=== PATIENT | male | born 1955 | race Asian ===

== ENCOUNTER 2024-08-29 14:26 | Outpatient (REF) | payer MEDICAID, SELFPAY ==
[2024-08-29 15:47] LABS: MANUAL DIFF FLAG NO
[2024-08-29 16:49] LABS: Basophils Percent Auto 0.6 % (0-2); Eosinophils Absolute Auto 0.1 X10*3/uL (0.0-0.4); Eosinophils Percent Auto 1.5 % (0-4); Hematocrit 42.7 % (42.0-52.0); Hemoglobin 14.6 g/dl (14.0-18.0); Imm Gran Abs Auto 0.01 X10*3/uL (0.00-0.03); Imm Gran Pct Auto 0.1 % (0.0-0.4); Lymphocytes Absolute Auto 1.8 X10*3/uL (1.2-4.9); Lymphocytes Percent Auto 25.9 % (20-40); Mean Corpuscular HGB Conc 34.2 g/dl (31.0-36.0); Mean Corpuscular Hemoglobin 32.7 pg (27.0-33.0); Mean Corpuscular Volume 95.5 fL (80.0-98.0); Mean Platelet Volume 8.9 fL (9.4-12.4); Monocytes Absolute Auto 0.5 X10*3/uL (0.1-1.2); Monocytes Percent Auto 6.6 % (2-11); Neutrophils Absolute Auto 4.5 x10*3/uL (2.0-8.3); Neutrophils Percent Auto 65.3 % (45-73); Platelet Count 204 X10*3/uL (160-400); Red Blood Count 4.47 X10*6/uL (4.60-5.80); Red Cell Distribution Width 11.6 % (11.0-16.0); White Blood Count 6.9 X10*3/uL (4.8-10.8)
[2024-08-29 17:17] LABS: Alanine Aminotransferase 30 U/L (0-40); Albumin Level 4.1 g/dL (3.5-5.0); Alkaline Phosphatase 102 U/L (39-117); Anion Gap 8 (12-20); Aspartate Amino Transferase 32 U/L (5-37); Bilirubin Total 0.4 mg/dL (0.0-1.0); Blood Urea Nitrogen 12 mg/dL (9-16); Calcium 9.1 mg/dL (8.4-10.2); Carbon Dioxide 29 mmol/L (22-29); Chloride 108 mmol/L (96-108); Estimated Glomerular Filt Rate > 60; Glucose Random 118 mg/dL (60-115); Sodium 141 mmol/L (135-145)
[2024-08-30 08:14] LABS: HBc Num1 8.08 S/CO (0.00-0.79); Hepatitis A Antibody IgM 0.19 Index (0-0.79); ~HepC Num1 0.09 S/CO (0.00-0.79); ~Hepatitis A Antibody IgM Nonreactive (Nonreactive); ~Hepatitis B Surface Antibody NONREACTIVE (Nonreactive); ~Hepatitis C Antibody Nonreactive (Nonreactive)
[2024-08-30 09:56] LABS: HBc Num2 8.13 S/CO; HBc Num3 8.16 S/CO; HBsAGNum2 Reactive; HBsAGNum3 Reactive; Hepatitis B Core Antibody Reactive (Nonreactive); Hepatitis B Surface Antigen Retest CNFM (Negative)
[2024-08-31 23:09] LABS: Hepatitis BE Antibody REACTIVE (NON-REACTIVE)
[2024-09-01 00:52] LABS: Hepatitis B Viral DNA Qn - cp 2.66 Log IU/mL (NOT DETECTED); Hepatitis B Viral DNA Qn-IU/mL 455 IU/mL (NOT DETECTED)
[2024-09-01 15:44] LABS: Hepatitis B Core Antibody IgM NON-REACTIVE (NON-REACTIVE)
[2024-09-03 19:13] LABS: Hepatitis Delta Antibody NEGATIVE
[2024-09-04 22:58] LABS: Hepatitis BE Antigen NON-REACTIVE (NON-REACTIVE)
[2024-09-06 17:47] LABS: FIB-ALT 20 U/L (9-46); FIB-Alpha-2-Macroglobulin 207 mg/dL (106-279); FIB-Apolipoprotein A1 119 mg/dL (94-176); FIB-GGT 16 U/L (3-70); FIB-Haptoglobin 23 mg/dL (43-212); FIB-Total Bilirubin 0.3 mg/dL (0.2-1.2); Liver Fibrosis Stage F2; Nec Inflam Act Grade A0; Nec Inflam Act Score 0.11; Reference ID 5262611
== END 2024-08-29 14:27 | disposition home or self-care (01) ==
LOC: HO.LAB 14:26
PROVIDERS: Visit Provider Internal Medicine Gastroenterology
DX: B18.1 Chronic viral hepatitis B without delta-agent (principal); K75.81 Nonalcoholic steatohepatitis (NASH)
CPT/HCPCS: 36415; 80053; 81596; 85025; 86692; 86704; 86705; 86706; 86707; 86709; 86803; 87340; 87350; 87517; 99202

== ENCOUNTER 2024-08-29 14:26 | Outpatient (AMB) | payer MEDICAID, SELFPAY ==
--- NOTE | 2024-08-29 14:30 | MHC.OFFVIS ---
Vital Signs 08/29/24 14:44 Height 5 ft 2 in Weight 151 lb BMI 27.6 BP 152/83 H Blood Pressure Location Lt brachial Position Sitting Pulse 74 Intake Visit Reasons: Hep B new patient Intake Note: New consult for Hep B. Patient denies any GI issues for today visit. Son is concern about his dad Hep B dx. Newspaper Clipper Required: No Accompanied by: Son Allergies No Known Allergies Allergy (Verified 08/29/24 14:28) HPI HPI Hep B new patient: Details: HPI 69 yr old mandarin speaking male here for assessment He has hx of chronic Hep B, treated in [place] with tenofivir He has had it since 1992 He has no abdominal pain appetite is good weight is normal he has noted episodic blood in stool ROS: Constitutional : No Weight loss, No Fever, No Chills ENT/Mouth : No sore throat, No Rhinorrhea Eyes: No Swelling, No Redness Cardiovascular : No Chest Pain, No SOB, No Edema Respiratory : No Cough, No Sputum, No Wheezing Gastrointestinal : see HPI Genitourinary : NO Dysuria, No Urinary Frequency, No Hematuria, No Urgency Musculoskeletal : + joint pain, No Myalgias, No Joint Swelling Skin : No Skin Lesions, No rash Neuro : No Weakness, No Numbness, No Dizziness, No Headache Psych : No Anxiety/Panic, No Depression Heme/Lymph: No Bruising, No Lymphadenopathy Endocrine : No Polyuria, No Polydipsia All other systems reviewed and are negative. Medical History Hx of H pylori HTN HLP Surgical History leg fracture and surgery Family History No FH of colon cancer No Fh of liver cancer Social History ex smoker no alcohol EXAM: GENERAL: The patient is well developed and nontoxic. VITAL SIGNS:see workflow HEENT: Nonicteric sclerae, PERRLA, EOMI. Oropharynx clear. Moist mucous membranes. Conjunctivae appear well perfused. No thyroid mass. CHEST: Chest wall is nontender. HEART: Regular rate and rhythm without murmurs. LUNGS: Clear to auscultation bilaterally. ABDOMEN: Soft, positive bowel sounds, nontender, no organomegaly.no flank tenderness SKIN: No rash, no excessive bruising, petechiae, or purpura. NEUROLOGIC: Cranial nerves II-XII intact without motor/sensory deficit. Psych: normal affect A/P: 1/ Chronic Hep B 2/ Rectal bleeding PLAN: 1/ Get baseline labs--send tenofovir once get results 2/ colonoscopy with suprep [facility] Surgical History (Updated 08/29/24 @ 14:46 by Ching Albrecht) History of surgery on lower extremity Social History (Updated 08/29/24 @ 14:48 by Ching Albrecht) Household Members: Family Unable to assess alcohol history related to: Unknown Patient Tobacco Use Status: Former Tobacco user Tobacco use type: Cigarette Smoked in Last 30 Days: No Physical Exam Vital Signs: Last Vital Signs Pulse 74 08/29/24 14:44 BP 152/83 H 08/29/24 14:44 BMI result Body Mass Index 27.6 Assessment & Plan Assessment & Plan (1) Chronic hepatitis B: Code(s): B18.1 - Chronic viral hepatitis B without delta-agent Category: Medical Plan: as above Orders: Orders Complete Blood Count Auto Diff Today B18.1 - Chronic viral hepatitis B without delta-agent Hepatitis A,B,C Profile Today B18.1 - Chronic viral hepatitis B without delta-agent Hepatitis B Viral DNA Qn Today B18.1 - Chronic viral hepatitis B without delta-agent Hepatitis BE Antibody Today B18.1 - Chronic viral hepatitis B without delta-agent Hepatitis BE Antigen Today B18.1 - Chronic viral hepatitis B without delta-agent US abdomen torres w elastography Today B18.1 - Chronic viral hepatitis B without delta-agent, K74.60 - Unspecified cirrhosis of liver, K75.81 - Nonalcoholic steatohepatitis (SPARKS) Hepatitis Delta Antibody Today B18.1 - Chronic viral hepatitis B without delta-agent Comprehensive Met. Panel Today B18.1 - Chronic viral hepatitis B without delta-agent, K75.81 - Nonalcoholic steatohepatitis (SPARKS) Liver Fibrosis Pnl Today B18.1 - Chronic viral hepatitis B without delta-agent Medications: New sodium,potassium,mag sulfates 17.5-3.13-1.6 gram (Suprep Bowel Prep Kit) DILUTE; drink 1/2 at 6-8 pm and half at 11 PM- 1AM 354 mL 0RF Coding Level of Care Code New Pt Level 4 (17606) Diagnoses Chronic hepatitis B B18.1
[2024-08-29 14:44] VITALS: BP 152/83; PULSE 74; BMI 27.6
== END 2024-08-31 09:31 | disposition home or self-care (01) ==
PROVIDERS: Visit Provider Internal Medicine Gastroenterology
DX: B18.1 Chronic viral hepatitis B without delta-agent (principal)
CPT/HCPCS: 99204

== ENCOUNTER 2024-09-05 09:03 | Day surgery (SDC) | payer MEDICAID, SELFPAY ==
--- OUTSIDE RECORDS SUMMARY | 2024-08-30 07:49 | XMS_ITS ---
Author Organization Q [facility] Address [address] [place], [place] [id number] Care Team Providers Care Computer Operations Specialist Name Role Phone Yasmin Santana Vivianelogan Primary Care Provider REASON FOR VISIT Telehealth visit 07/02/2024 Social History Sex Assigned At : Social History Observation Description Sex Assigned At Male Encounters Encounter Location Date Provider Diagnosis W [address] [id number] 07/02/2024 Yasmin Santana Plan Of Treatment Next Appt Details Provider Name:Yasmin Santana, 0 10/03/2024 01:45:00 PM, [address] [place] [address], [phone], Provider Name:Yasmin Martinez Max, 0 01/24/2025 11:45:00 AM, [address] [place] [address], [id number], Progress Notes * MELISSA JUSTICEDOB:1955 (69 y o M)Acc No.[id number]:07/02/2024 Patient:?MELISSA JUSTICE :1955???Age:69 Y???Sex:Male Address:[address], [place], [address] * * Date:?
--- OUTSIDE RECORDS SUMMARY | 2024-08-30 07:49 | XMS_ITS ---
Author Organization Q [facility] Address [address] [place], [place] [address] Care Team Providers Care Peoplesoft Hcm Consultant Name Role Phone Max Yasmin Martinez Primary Care Provider REASON FOR VISIT cancel no answer Medications Medication SIG (Take, Route, Frequency, Duration) Notes Start Date End Date Status Vitamin D3 25 mcg 1 cap(s) orally once a day for 30 day(s) Active Atorvastatin Calcium 10 mg 1 tab(s) orally once a day 03/03/2023 Active Vemlidy 25 mg 1 tab(s) orally once a day Not-Taking benazepril 10 mg 1 tab(s) orally once a day and add another tab if BP more than 140/90 Active Social History Sex Assigned At : Social History Observation Description Sex Assigned At Male Encounters Encounter Location Date Provider Diagnosis W [address] [id number] 07/02/2024 Yasmin Santana Plan Of Treatment Next Appt Details Provider Name:Yasmin Santana, 0 10/03/2024 01:45:00 PM, [address] [place] [address], [phone], Provider Name:Yasmin Santana, 0 01/24/2025 11:45:00 AM, [address] [place] [address], [id number], Progress Notes * MELISSA JUSTICEDOB:1955 (69 y o M)Acc No.[id number]:07/02/2024 Telehealth Patient:?MELISSA JUSTICE ??External /[id number]* Provider:?Stephanie Santana MD :1955???Age:69 Y???Sex:Male Phill e:07/02/2024 ?CHN#:[id number] Address:[address] [place], [place] [address] Patient's Default Facility:[facility] Subjective: * Chief Complaints: * ???1. Cancel no answer. * Medical History:? * Medications:?Taking Vitamin D3 25 mcg capsule 1 cap(s) orally once a day , Taking Atorvastatin Calcium 10 mg tablet 1 tab(s) orally once a day , Taking benazepril 10 mg tablet 1 tab(s) orally once a day and add another tab if BP more than 140/90 , Not-Taking Vemlidy 25 mg tablet 1 tab(s) orally once a day Objective: * Vitals:? * Physical Examination:? Assessment: Plan: * Treatment: * Billing Information: * Visit Code:? * Procedure Codes:? * Electronic signature of Yasmin Santana MD on 08/30/2024 at 07:49 AM EST Sign off status: Pending * Provider:?Stephanie Santana MD Date:?07/02/20 24 Generated for Catracho curiel/Kavitha/Alanitting on:?08/30/2024 07:49 AM EST
--- OUTSIDE RECORDS SUMMARY | 2024-08-30 07:50 | XMS_ITS ---
Author Organization [facility] Address [address] [place], [place] [address] Care Team Providers Care Assistant Designer Name Role Phone Yasmin Santana Primary Care Provider Social History Sex Assigned At : Social History Observation Description Sex Assigned At Male Encounters Encounter Location Date Provider Diagnosis [address] [id number] 06/30/2024 Yasmin Santana Plan Of Treatment Next Appt Details Provider Name:Yasmin Santana, 0 10/03/2024 01:45:00 PM, [address] [place] [address], [phone], Provider Name:Yasmin Santana, 0 01/24/2025 11:45:00 AM, [address] [place] [address], [phone], Progress Notes * MELISSA JUSTICEDOB:1955 (69 y o M)Acc No.[id number]:06/30/2024 Telehealth Patient:?MELISSA JUSTICE ??External /[id number]* Provider:?Stephanie Santana MD :1955???Age:69 Y???Sex:Male Phill e:06/30/2024 ?CHN#:[id number] Address:[address], [facility] Patient's Default Facility:[facility] Subjective: * Chief Complaints: * ??? * Medical History:? Objective: * Vitals:? * Physical Examination:? Assessment: Plan: * Treatment: * Billing Information: * Visit Code:? * Procedure Codes:? * Electronic signature of Yasmin Santana MD on 08/30/2024 at 07:49 AM EST Sign off status: Pending * Provider:?Stephanie Santana MD Date:?06/30/20 24 Generated for Catracho curiel/Kavitha/Jose Manuelsmteodoro on:?08/30/2024 07:49 AM EST
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
--- OUTSIDE RECORDS SUMMARY | 2024-09-05 09:09 | XMS_ITS ---
Author Organization Q [facility] Address [address] [place], [place] [address] Care Team Providers Care Loan Review Analyst Name Role Phone Yasmin Santana Primary Care Provider [phone] REASON FOR VISIT New Refill Request Social History Sex Assigned At : Social History Observation Description Sex Assigned At Male Encounters Encounter Location Date Provider Diagnosis W [address] [id number] 09/02/2024 Yasmin Santana Plan Of Treatment Next Appt Details Provider Name:Yasmin Santana, 0 10/03/2024 01:45:00 PM, [address] [place] [address], [phone], Provider Name:Yasmin Martinez Max, 0 01/24/2025 11:45:00 AM, [address] [place] [address], [phone], Progress Notes * MELISSA JUSTICEDOB:1955 (69 y o M)Acc No.[id number]:09/02/2024 Patient:?MELISSA JUSTICE :1955???Age:69 Y???Sex:Male Address:[address], [place], [address] * * Date:?
--- OUTSIDE RECORDS SUMMARY | 2024-09-05 09:09 | XMS_ITS ---
Author Organization Q [facility] Address [address] [place], [place] [address] Care Team Providers Care Computational Linguist Name Role Phone Max Yasmin Martinez Primary Care Provider [phone] REASON FOR VISIT cancel no answer Medications [...] Encounters Encounter Location Date Provider Diagnosis W [address] [id number] 07/02/2024 Yasmin Santana Plan Of Treatment Next Appt Details Provider Name:Yasmin Santana, 0 10/03/2024 01:45:00 PM, [address] [place] [address], [phone], Provider Name:Yasmin Santana, 0 01/24/2025 11:45:00 AM, [address] [place] [address], [phone], Progress Notes * MELISSA JUSTICEDOB:1955 (69 y o M)Acc No.[id number]:07/02/2024 Telehealth Patient:?MELISSA JUSTICE ??External /[id number]* Provider:?Stephanie Santana MD :1955???Age:69 Y???Sex:Male Phill e:07/02/2024 ?CHN#:[id number] Address:[address] [place], [place] [address] Patient's Default Facility:[facility] Subjective: * Chief Complaints: * [...] Electronic signature of Yasmin Santana MD on 09/05/2024 at 09:09 AM EST Sign off status: Pending * Provider:?Stephanie Santana MD Date:?07/02/20 24 Generated for Catracho curiel/Kavitha/Alanitting on:?09/05/2024 09:09 AM EST
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
--- OUTSIDE RECORDS SUMMARY | 2024-09-05 09:09 | XMS_ITS ---
Author Organization [facility] Address [address], [place] [id number] Care Team Providers Care Blender Laborer Name Role Phone Yasmin Santana Vivianelogan Primary Care Provider [phone] REASON FOR VISIT Telehealth visit 07/02/2024 Social History Sex Assigned At : Social History Observation Description Sex Assigned At Male Encounters Encounter Location Date Provider Diagnosis [address] [id number] 07/02/2024 Yasmin Santana Plan Of Treatment Next Appt Details Provider Name:Yasmin Santana, 0 10/03/2024 01:45:00 PM, [address] [place] [address], [phone], Provider Name:Yasmin Martinez Max, 0 01/24/2025 11:45:00 AM, [address] [place] [address], [phone], Progress Notes * MELISSA JUSTICEDOB:1955 (69 y o M)Acc No.[id number]:07/02/2024 Patient:?MELISSA JUSTICE :1955???Age:69 Y???Sex:Male Address:[address], [place], [address] * * Date:?
[2024-09-05 09:26] VITALS: BMI 26.4
--- NOTE | 2024-09-05 09:27 | MHC.SHP ---
Pre-Procedural Eval Section A - 24 Hr Update-Section A only Date of Service: 09/05/24 The patient is an INPATIENT: No The patient has been examined within 24 hours of the surgical procedure. The History & Physical has been completed within 30 days and I have reviewed it.: Yes Section B - Complete if H&P > 30 days Chief Complaint: Hemorrhage of anus and rectum Allergies: Allergies Allergy/AdvReac Type Severity Reaction Status Date / Time No Known Allergies Allergy Verified 09/05/24 09:22 Plan I have reviewed the history and physical and performed a pertinent physical examination on my patient. No changes have occurred unless specified. Time Spent With Patient Time: Total time managing care of this patient today ____ minutes.
[2024-09-05 09:38] VITALS: BP 164/82; PULSE 73; RESP 15; TEMP 37.2; O2SAT 96
--- NOTE | 2024-09-05 09:50 | P.CONAN_ITS ---
HPI - Anesthesia Eval Consult details Narrative: 69 yo M presenting for colonoscopy. Mandarin-speaking; [employer] translator interpreter used for translation. PMFSH Active Problems Active Problems: All Active Problems Chronic hepatitis B (Acute) Past Medical History Medical History (Updated 09/05/24 @ 09:21 by Ida Oscar, RN) HTN (hypertension) Family History Family history of problems with anesthesia: No Surgical History Surgical History (Updated 09/05/24 @ 09:22 by Ida Oscar, RN) History of surgery on lower extremity History of Problems with Anesthesia: No Social History Social History (Updated 08/29/24 @ 14:48 by Ching Albrecht) Household Members: Family Unable to assess alcohol history related to: Unknown Patient Tobacco Use Status: Former Tobacco user Tobacco use type: Cigarette Use of substances other than those prescribed or required for medical reasons: No Are you DNR?: No Advance Directives: No Advance Directives Information Provided: Yes Meds Allergies Allergy/AdvReac Type Severity Reaction Status Date / Time No Known Allergies Allergy Verified 09/05/24 09:22 Home Medications ?Medication ?Instructions ?Recorded ?Confirmed ?Last Taken ?Type benazepril 10 mg tablet 10 mg PO DAILY 08/29/24 09/05/24 Unknown History Exam Exam Date and Time: 09/05/24 0950 Height,Weight and Vital Signs: Height 5 ft 3 in Weight 67.585 kg Airway Mallampati Class: II TM Dist: <=3cm Neck ROM: Full Denture: Upper and Lower Heart: S1S2 Lungs: CTAB Assessment and Plan Assessment Anesthesia Assessment: Anesthesia Plan Discussed and Chart Reviewed Final Anesthetic Review Family History of Problems with Anesthesia: No History of Problems with Anesthesia: No NPO: Yes ASA Class: II Final Preanesthetic Review: No Changes in Pt Med Stat, Meds/Allgs Chart Reviewed, Consent Obtained/Reviewed ([employer] translator interpreter used for translation) and Anes Risks/Benef Reviewed Patient Risk: Low Procedure Risk: Low Anesthetic Plan Anesthetic Plan: MAC: and Agree w/ Assess. and Plan Disposition: Standard PACU
[2024-09-05] MEDS: Lactated Ringers 1,000 ML 50 ML IVCONT (09:55)
--- NOTE | 2024-09-05 10:46 | P.OPN-COLO_ITS ---
Colonoscopy Operative Note Operative Note Date of Service: 09/05/24 Narrative: Operative Information Procedure Description: Colonoscopy Indication: rectal bleeding Anesthesia: MAC COLONOSCOPY Instrument: Olympus variable stiffness pediatric scope 190L Colonoscopy Monitoring: Vital signs and clinical assessment, continuous EKG monitoring, Pulse oximetry, Carbon Dioxide monitoring and blood pressure monitoring were done throughout the procedure. Colon withdrawal time was 10 minutes. Procedure: The patient was placed in the left lateral decubitis position and pre-procedure medications were administered. After a digital rectal examination of the ano-rectum, the video colonoscope was inserted into the rectum and advanced through the colon to the cecum/TI. The colonoscope was slowly withdrawn in a retrograde panoramic fashion and the colon mucosa was carefully examined including a retroflexed view of the rectum. Findings and interventions are described below. Procedure Difficulty: moderate, pressure applied turned on back Findings: Terminal Ileum-not intubated due to looping Cecum:normal Ascending Colon: 8-9 mm sessile polyp removed with cold snare Transverse Colon -normal Descending Colon: 8 mm sessile polyp removed with cold snare Sigmoid Colon: normal Rectum: Retroflexion with small internal hemorrhoids seen, grade I, 4-6 mm sessile polyp removed with cold forceps Anorectum - normal Intervention: cold snare, cold forceps Colon preparation: [place] Bowel Preparation Scale Right colon; 2 Transverse colon: 2 Left colon; 2 (0 = Unprepared colon segment with mucosa not seen due to solid stool that cannot be cleared. 1 = Portion of mucosa of the colon segment seen, but other areas of the colon segment not well seen due to staining, residual stool and/or opaque liquid. 2 = Minor amount of residual staining, small fragments of stool and/or opaque liquid, but mucosa of colon segment seen well. 3 = Entire mucosa of colon segment seen well with no residual staining, small fragments of stool or opaque liquid) Impression and Post Procedure Diagnosis: colon polyps internal hemorrhoids Plan: High fiber diet leaflet Avoid straining at stool, epsom salts and sitz bath, anusol supps or cream Repeat Colonoscopy in 3 years or earlier if clinically indicated- next time use adult scope Above findings were reviewed with the patient and relevant handouts were provided if indicated.
[2024-09-05 10:55] VITALS: BP 106/61; PULSE 61; RESP 16; TEMP 36.1; O2SAT 96
[2024-09-05 11:10] VITALS: BP 118/66; PULSE 62; RESP 17; TEMP 36.1; O2SAT 97
--- NOTE | 2024-09-05 12:23 | PC.NURSE ---
NEWS COPY EDITOR # [id number]
== END 2024-09-05 12:23 | disposition home or self-care (01) ==
PROVIDERS: Visit Provider Internal Medicine Gastroenterology
PROC: 0DJD8ZZ Inspection of Lower Intestinal Tract, Via Natural or Artificial Opening Endoscopic (ICD-10-PCS; CPT 45378; principal; 2024-09-05 10:50)
DX: D12.2 Benign neoplasm of ascending colon (principal); D12.4 Benign neoplasm of descending colon; D12.8 Benign neoplasm of rectum; K64.0 First degree hemorrhoids; B18.1 Chronic viral hepatitis B without delta-agent; I10 Essential (primary) hypertension; Z87.891 Personal history of nicotine dependence
CPT/HCPCS: 45385; 45380; 88305; J2003; J2704

== ENCOUNTER → 2024-09-05 09:03 | Outpatient (BNV) | payer MEDICAID, SELFPAY | PROVIDERS: Visit Provider Internal Medicine Gastroenterology | DX: K62.5 Hemorrhage of anus and rectum (principal); D12.2 Benign neoplasm of ascending colon; D12.4 Benign neoplasm of descending colon; D12.8 Benign neoplasm of rectum; K64.0 First degree hemorrhoids | CPT/HCPCS: 45380; 45385 ==

== ENCOUNTER 2024-10-07 07:53 | Outpatient (REF) | payer MEDICAID, SELFPAY ==
--- NOTE | ~2024-10-07 | US_ITS ---
EXAMINATION: US ABDOMEN LIMITED WITH LIVER ELASTOGRAPHY HISTORY: K75.81 - Nonalcoholic steatohepatitis (SPARKS) TECHNIQUE: Real-time grayscale ultrasound imaging of the right upper quadrant was performed and images were reviewed. COMPARISON: There are no prior studies for comparison. FINDINGS: Liver: The liver is normal in size, but demonstrates mildly coarsened echotexture. No focal mass or intrahepatic biliary ductal dilatation is identified. There is normal hepatopedal flow in the portal vein. Ultrasound elastography of the liver was performed with 10 separate measurements of the liver parenchyma with the patient in the supine position. Measurements were obtained approximately 2 cm below Estelle's capsule and perpendicular to the capsule. Images are of satisfactory quality. The median shear wave velocity is 1.41 m/s. The interquartile range/median (IQR/median) is 0.29. Gallbladder and biliary tree: The gallbladder is unremarkable, without evidence of calculi, wall thickening, or pericholecystic fluid. There is no sonographic Gale sign. The common bile duct is normal in caliber measuring 5 mm. Right Kidney: The right kidney measures 10.4 cm in length. The right kidney is unremarkable, without evidence of masses, hydronephrosis, or calculi. Pancreas: The pancreas is obscured by bowel gas. Abdominal aorta and inferior vena cava: The visualized portions of the abdominal aorta and inferior vena cava are normal in caliber. There is no free fluid in the right upper quadrant. US/US abdomen torres w elastography IMPRESSION: Mildly coarsened hepatic echotexture. The pancreas is not visualized. The median shear wave velocity is 1.41 m/s, corresponding to a median liver stiffness of 6.0 kPa. The IQR/median value is 0.29. This is indicative of a poor quality data set, and the estimated liver stiffness may be unreliable. Findings are indicative of a low elastography value which rules out advanced chronic liver disease in asymptomatic patients. REFERENCE: Society of Radiologists in Ultrasound Liver Stiffness Thresholds (2020): LIVER STIFFNESS THRESHOLDS: *Shear wave velocity less than 1.3 m/s (Liver Stiffness equal or less than 5 kPa): High probability of being normal. *Shear wave velocity less than 1.7 m/s (Liver Stiffness less than 9 kPa): In the absence of other known clinical signs, rules out compensated advanced chronic liver disease. *Shear wave velocity between 1.7-2.1 m/s (Liver Stiffness 9-13 kPa): Suggestive of compensated advanced chronic liver disease but need further test for confirmation. *Shear wave velocity between 2.1-2.4 m/s (Liver Stiffness 13-17 kPa): Rules in compensated advanced chronic liver disease. *Shear wave velocity greater than 2.4 m/s (Liver Stiffness over 17 kPa): Suggestive of clinically significant portal hypertension. QUALITY OF DATA SET: *IQR/Median value equal or less than 0.15 implies a quality data set. *IQR/Median value over 0.15 implies a poor quality data set. SIGNIFICANT CHANGE FROM PRIOR EXAM: Significant change if liver stiffness measurement is 10% or greater from prior exam. OTHER CONSIDERATIONS: The stage of liver fibrosis may be overestimated in the setting of acute hepatitis, liver inflammation, elevated liver function tests, hepatic vascular congestion, obstructive cholestasis, non-fasting state, and infiltrative diseases such as amyloidosis and lymphoma. In some patients with NAFLD, the liver stiffness thresholds for compensated advanced chronic liver disease may be lower. In causes other than viral hepatitis and NAFLD, liver stiffness thresholds are not well established. Electronically signed by: Rafael Garcia MD 10/07/2024 09:19 AM [facility]
== END 2024-10-07 07:54 | disposition home or self-care (01) ==
LOC: HO.US 07:53
PROVIDERS: Visit Provider Internal Medicine Gastroenterology
DX: K75.81 Nonalcoholic steatohepatitis (NASH) (principal); K74.60 Unspecified cirrhosis of liver; B18.1 Chronic viral hepatitis B without delta-agent
CPT/HCPCS: 76705; 76981

== ENCOUNTER → 2024-10-07 07:54 | Outpatient (BNV) | payer MEDICAID, SELFPAY | PROVIDERS: Visit Provider Radiology Diagnostic Radiology | DX: K75.81 Nonalcoholic steatohepatitis (NASH) (principal) | CPT/HCPCS: 76705 ==